=== PATIENT | male | born 1975 | race African-American/Black ===

== ENCOUNTER 2022-06-19 20:28 | Outpatient (REF) | payer OTHER, SELFPAY ==
[2022-06-19 21:02] LABS: COVID-19 Test Negative (Negative); IDNOW Serial# 6674DD1D
== END 2022-06-19 20:29 | disposition home or self-care (01) ==
LOC: HO.LAB 20:28
PROVIDERS: Visit Provider Internal Medicine
DX: Z20.822 Contact with and (suspected) exposure to COVID-19 (principal)
CPT/HCPCS: 87635